=== PATIENT | female | born 2000 | race Caucasian/White ===

== ENCOUNTER 2018-05-25 20:13 | Emergency (ER) | payer BC ==
[2018-05-25 20:35] VITALS: BP 126/85
[2018-05-25] MEDS ORDERED: Ibuprofen TAB* 400 MG PO ONE (20:50)
--- NOTE | 2018-05-25 20:50 | UC ---
Respiratory Complaint HPI - HPI Summary HPI Summary: 17 y/o female presents to the urgent care c/o fever, sore throat, dry cough, SCHROEDER , body aches, lower back pain for the past 3 days. Pt has been taking Nyquil and Dayquil PO w/o any improvement. Last dose taking was at 1300PM today pain w / swallowing is 8/10. Pt has mild nasal congestion w/ clear nasal discharge. Pt denies Hx of tick bites, dizziness, cheat pain, abdominal pain, Urinary symptoms , N/V/D. Pt has been drinking fluids and urinating well, w/ normal BM. Denies vaginal D/C or Hx of STD's. LMP: 05/14/2018. - History of Current Complaint Chief Complaint: UCGeneralIllness Stated Complaint: HEADACHE,SORE THROAT Time Seen by Provider: 05/25/18 20:37 Hx Obtained From: Patient Hx Last Menstrual Period: [id number] ?: No Onset/Duration: Gradual Onset, Lasting Days - 3 days, Still Present Timing: Constant Severity Initially: Mild Severity Currently: Moderate Pain Intensity: 8 - sore throat Pain Scale Used: 0-10 Numeric Character: Cough: Nonproductive Aggravating Factors: Recumbent Position Alleviating Factors: OTC Meds - Nyquill and Dayquill Associated Signs And Symptoms: Positive: Fever, Chills, URI, Nasal Congestion. Negative: Wheezing, Dizziness, Calf Pain, Calf Swelling - Risk Factors Pulmonary Embolism Risk Factors: Negative Cardiac Risk Factors: Negative Pseudomonas Risk Factors: Negative Tuberculosis Risk Factors: Negative - Allergies/Home Medications Allergies/Adverse Reactions: Allergies Allergy/AdvReac Type Severity Reaction Status Date / Time No Known Allergies Allergy Unverified 05/25/18 20:36 PMH/Surg Hx/FS Hx/Imm Hx Previously Healthy: Yes - Pt denies PMHX - Surgical History Surgical History: None - Family History Known Family History: Positive: None - Pt denies FMHX - Social History Occupation: Student Lives: With Family Alcohol Use: Weekly Substance Use Type: None Smoking Status (MU): Never Smoked Tobacco - Immunization History Vaccination Up to Date: Yes Review of Systems Constitutional: Fever, Chills Skin: Negative Eyes: Negative ENT: Sore Throat, Nasal Discharge, Sinus Congestion Respiratory: Cough - dry Cardiovascular: Negative Gastrointestinal: Negative Genitourinary: Negative Motor: Negative Neurovascular: Negative Musculoskeletal: Arthralgia, Other: - lower back pain Neurological: Headache Psychological: Negative Is Patient Immunocompromised?: No All Other Systems Reviewed And Are Negative: Yes Physical Exam - Summary Physical Exam Summary: VITAL SIGNS: Reviewed. GENERAL: Patient is a well developed and nourished female adolescent who is sitting comfortable in the examining table. Patient is not in any acute respiratory distress. HEAD AND FACE: No signs of trauma. No ecchymosis, hematomas or skull depressions. No sinus tenderness. EYES: PERRLA, EOMI x 2, No injected conjunctiva, no nystagmus. No photophobia. EARS: Hearing grossly intact. Ear canals and tympanic membranes are within normal limits. MOUTH: Positive pharynx with erythema, exudates, palatal petechiae. B/L tonsillar enlargement with exudate. Uvula in midline. NECK: Supple, trachea is midline, Positive anterior cervical lymphadenopathy, no JVD, no carotid bruit, no c-spine tenderness, neck with full ROM. No meningeal signs, no Kernig's or brudzinskis signs. CHEST: Symmetric, no tenderness at palpation LUNGS: Clear to auscultation bilaterally. No wheezing or crackles. CVS: Regular rate and rhythm, S1 and S2 present, no murmurs or gallops appreciated. ABDOMEN: Soft, non-tender. No signs of distention. No rebound no guarding, and no masses palpated. Bowel sounds are normal. EXTREMITIES: FROM in all major joints, no edema, no cyanosis or clubbing. NEURO: Alert and oriented x 3. No acute neurological deficits. Speech is normal and follows commands. SKIN: Dry and warm Triage Information Reviewed: Yes Vital Signs: Initial Vital Signs Temp 102.6 F 05/25/18 20:30 Pulse 108 05/25/18 20:30 Resp 18 05/25/18 20:30 BP 126/85 05/25/18 20:30 Pulse Ox 100 05/25/18 20:30 Diagnostic Evaluation - Laboratory O2 Sat by Pulse Oximetry: 100 Respiratory Course/Dx - Course Course Of Treatment: 17 y/o female presents to the urgent care c/o fever, sore throat, dry cough, SCHROEDER, body aches, lower back pain for the past 3 days. Pt has been taking Nyquil and Dayquil PO w/o any improvement. Last dose taking was at 1300PM today pain w/ swallowing is 8/10. Pt has mild nasal congestion w/ clear nasal discharge. Pt denies Hx of tick bites, dizziness, cheat pain, abdominal pain, Urinary symptoms, N/V/D. Pt has been drinking fluids and urinating well, w / normal BM. Denies vaginal D/C or Hx of STD's. LMP: 05/14/2018. Hx obtained. Pt febrile w/ pharyngitis and tonsillitis on examination. Rapid strep ordered: result: Negative. Influenxa A&B ordered: negative. UA: trace of blood and ketones, UA :negative. Pt w/ negative B/L CVA tenderness. Pt given Ibuprofen at the clinic PO for fever and pain. Pt tolerated well medication and felt better. Mother and PT Advised on hand washing to avoid spreading. Monospot and throat culture ordered and sent to lab. Pt will be notified of resultus for further management.Also advised to rest, eat well and avoid strenuous exercise. If symptoms do not improve or worsen advised to return to the urgent care or f/u with her PCP in 2 days for further evaluation and treatment. D/C instructions explained. Mother and PT understood and agreed w/ plan of care. - Differential Dx/Diagnosis Differential Diagnosis/HQI/PQRI: Asthma, Bronchitis, Influenza, Laryngitis, Lower Resp Infection, Sinusitis, Other - pharyngitis Provider Diagnoses: 1- Viral pharyngitis. 2- Tonsillitis. 3-Fever Discharge - Sign-Out/Discharge Documenting (check all that apply): Patient Departure - D/c home All imaging exams completed and their final reports reviewed: No Studies - Discharge Plan Condition: Stable Disposition: HOME Prescriptions: Ibuprofen TAB* [Motrin TAB* 800 MG] 800 mg PO Q6H PRN #30 tab PRN Reason: Sore Throat Patient Education Materials: Pharyngitis (ED) Referrals: Ann Witt MD [Primary Care Provider] - 2 Days Additional Instructions: 1-Please take ibuprofen alternating w/ Tylenol PO q6-8hrs prn as instructed after meals to alleviate fever, pain and swelling. Increase fluid intake, eat well, rest and avoid strenuous exercise 2- Rapid strep and Influenza A&B were negative. Monospot sent to lab to r/o Mononucleosis. You will be notified of the results 3-If symptoms do not improve or worsen please return to the urgent care or f/u with your PCP in 2 days for further evaluation and treatment. - Billing Disposition and Condition Condition: STABLE Disposition: Home
== END 2018-05-25 22:15 | disposition home or self-care (01) ==
LOC: UCEAST 20:13
DX: J02.8 Acute pharyngitis due to other specified organisms (principal); R50.9 Fever, unspecified; R05 Cough; R51 Headache; M54.5 Low back pain; Z32.02 Encounter for pregnancy test, result negative
CPT/HCPCS: 36415; 81003; 84702; 86308; 86664; 86665; 87070; 87651; 99212; A9270-GY; G0463